=== PATIENT | female | born 1985 | race Caucasian/White ===

== ENCOUNTER 2024-07-30 00:02 | Emergency (ER) | payer SELFPAY ==
[2024-07-30] MEDS: Acetaminophen 325 MG Tab PO ONE (01:40)
== END 2024-07-30 02:39 | disposition home or self-care (01) ==
LOC: JD.ED 00:02 → EEVIPCON 00:02 → JD.ED 02:39
DX: S40.022A Contusion of left upper arm, initial encounter (principal); S40.021A Contusion of right upper arm, initial encounter; F17.200 Nicotine dependence, unspecified, uncomplicated; Z88.0 Allergy status to penicillin; Z88.1 Allergy status to other antibiotic agents; Z91.013 Allergy to seafood; Y04.8XXA Assault by other bodily force, initial encounter
CPT/HCPCS: 71045; 73060; 73090; 73130; 99284; A9270; 99283